=== PATIENT | female | born 2000 | race Caucasian/White ===

== ENCOUNTER 2020-05-16 12:48 | Emergency (ER) | payer OTHER, SELFPAY ==
[~2020-05-16] VITALS: Ht 160 cm; Wt 69.8 kg
--- NOTE | 2020-05-16 14:04 | REP ---
INDICATION: calf pain r/o DVT COMPARISON: None. TECHNIQUE: Bridges scale and color Doppler evaluation right and left lower extremity using linear high frequency transducer. FINDINGS: Ultrasound examination of the right and left lower extremity deep venous structures from the common femoral vein to the popliteal vein demonstrates normal compressibility flow and wave patterns in response to respiration and augmentation. There is no evidence for deep venous thrombosis. IMPRESSION: No evidence for deep venous thrombosis of the bilateral lower extremities. <Electronically signed by Km Ruiz > 05/16/20 [id number]
[2020-05-16 14:28] LABS: BASO % 0.2 % (0.0-1.0); EOS # 0.1 10^3/uL (0.0-0.5); EOS % 1.4 % (0.0-3.0); HEMATOCRIT 38.5 % (36.0-47.0); HEMOGLOBIN 13.1 g/dl (12.0-15.5); LYMPH % 34.9 % (24.0-44.0); MEAN CORPUSCULAR HEMOGLOBIN 31.4 pg (27.0-33.0); MEAN CORPUSCULAR VOLUME 92.3 fl (80.0-96.0); MONO # 0.4 10^3/uL (0.0-0.8); MONO % 6.3 % (2.0-8.0); NEUTROPHILS # 3.2 10^3/uL (1.5-8.5); NEUTROPHILS % 56.8 % (36.0-66.0); PLATELET COUNT, AUTOMATED 216 10^3/uL (150-450); RED BLOOD COUNT 4.17 10^6/uL (4.00-5.40); WHITE BLOOD COUNT 5.7 10^3/uL (4.0-10.0)
[2020-05-16 14:48] LABS: INR 0.95; PROTHROMBIN TIME 12.9 SECONDS (12.5-14.3)
[2020-05-16 14:52] LABS: PARTIAL THROMBOPLASTIN TIME 27.6 SECONDS (24.2-38.5)
[2020-05-16 14:58] LABS: HCG, SERUM QUALITATIVE NEGATIVE (NEGATIVE)
[2020-05-16 15:08] LABS: ALT/SGPT 23 U/L (12-78); BILIRUBIN,DIRECT 0.1 MG/DL (0.0-0.2); BILIRUBIN,TOTAL 0.3 MG/DL (0.2-1.0); BLOOD UREA NITROGEN 15 MG/DL (7-18); CALCIUM LEVEL 8.8 MG/DL (8.5-10.1); CARBON DIOXIDE LEVEL 30 MEQ/L (21-32); CHLORIDE LEVEL 107 MEQ/L (98-107); CREATININE FOR GFR 0.68 MG/DL (0.55-1.30); FREE T4 1.02 NG/DL (0.76-1.46); GLOMERULAR FILTRATION RATE > 60.0 (>60); GLUCOSE, FASTING 97 MG/DL (70-100); POTASSIUM SERUM 3.9 MEQ/L (3.5-5.1); SODIUM LEVEL 140 MEQ/L (136-145); THYROID STIMULATING HORMONE 0.776 uIU/ML (0.358-3.740); TOTAL PROTEIN 7.1 GM/DL (6.4-8.2)
--- NOTE | 2020-05-16 15:30 | REP ---
INDICATION: CHEST PAIN COMPARISON: None. TECHNIQUE: Single portable AP view of the chest. FINDINGS: The mediastinum and cardiac silhouette are normal. The lung ochoa are clear and without acute consolidation, effusion, or pneumothorax. The skeletal structures are intact and normal. IMPRESSION: No acute cardiopulmonary process. <Electronically signed by Km Ruiz > 05/16/20 1521
[2020-05-16 15:58] VITALS: BP 121/69
--- NOTE | 2020-05-16 19:43 | ECGEPIP ---
[facility] - ED Test Date: 2020-05-16 Pat Name: IDANIA KERN Department: Room: - Gender: Female [employer] Consultant: PARKER : 2000 Requested By: RAFFI Allen Order Number: [id number] Reading MD: Eddy Martinez Measurements Intervals [place] Rate: 72 P: 39 IN: 170 QRS: 73 QRSD: 80 T: 37 QT: 384 QTc: 420 Interpretive Statements Normal sinus rhythm BENIGN EARLY REPOLARIZATION NO PRIORS FOR COMPARISON Electronically Signed on 05-16-2020 19:43:12 EDT by Eddy Martinez
== END 2020-05-16 15:59 | disposition home or self-care (01) ==
LOC: M ED 12:48 → EDBD 12:48 → M ED 15:59
DX: R55 Syncope and collapse (principal); Z79.3 Long term (current) use of hormonal contraceptives; Z77.098 Contact with and (suspected) exposure to other hazardous, chiefly nonmedicinal, chemicals